=== PATIENT | female | born 1985 | race Two or more races ===

== ENCOUNTER 2022-10-04 11:15 | Day surgery (SDC) | payer OTHER | END 2022-10-04 20:30 | disposition home or self-care (01) | LOC: CIR.AMB 11:15 | PROVIDERS: ATTEND Obstetrics & Gynecology Maternal & Fetal Medicine | DX: O02.1 Missed abortion (principal); O72.2 Delayed and secondary postpartum hemorrhage; Z20.822 Contact with and (suspected) exposure to COVID-19 ==

== ENCOUNTER 2023-10-16 17:24 | Outpatient (CLI) | payer OTHER | END 2023-10-16 18:15 | disposition home or self-care (01) | LOC: NST 17:24 | PROVIDERS: ATTEND Obstetrics & Gynecology Gynecology | DX: Z34.83 Encounter for supervision of other normal pregnancy, third trimester (principal) ==

== ENCOUNTER 2023-11-14 09:16 | Inpatient (IN) | payer OTHER ==
[~2023-11-14] VITALS: Ht 162.6 cm; Wt 2.7 kg
[2023-11-14] MEDS ORDERED: MORPHINE SULFATE 4 MG/ML CARTRIDGE IV STA ×2 (09:19→16:14)
[2023-11-14] MEDS ORDERED: PRENATAL TABLE1 EAC1 PO (09:20)
[2023-11-14] MEDS ORDERED: FERROCITE PLUS1 EACH PO (09:21)
[2023-11-14] MEDS ORDERED: AMPICILLIN SODIUM 1,000 MG VIAL IV SCH (09:41)
[2023-11-14] MEDS ORDERED: RINGERS SOLUTION,LACTATED 1,000 ML IV SCH (09:45)
[2023-11-14] MEDS ORDERED: AMPICILLIN SODIUM 2,000 MG VIAL IV ONE (09:45)
[2023-11-14 10:03] LABS: URINE APPEARANCE Clear; URINE BILIRRUBIN Negative (NEGATIVE); URINE BLOOD Negative; URINE COLOR Dark Yellow; URINE GLUCOSE Negative (NEGATIVE); URINE LEUKOCYTE Negative; URINE NITRATE Negative; URINE PROTEIN 30 (NEGATIVE)
[2023-11-14 10:04] LABS: URINE BACTERIA 876.8 uL (0.0-1933); URINE EPITHELIAL CELLS 29.2 uL (0.0-38.8); URINE RBC 18.6 uL (0.0-20.8)
[2023-11-14 10:09] LABS: HEMATOCRIT 36.7 % (36.0-45.00); HEMOGLOBIN 12.7 g/dL (12.0-15.00); MEAN CELL VOLUME 92.2 fL (80.00-100.00); MEAN CORPUSCULAR HEMOGLOBIN 31.9 pg (27.00-32.0); MEAN CORPUSCULAR HGB CONC 34.6 g/dl (32.0-36.0); PLATELET COUNT 186 K/uL (150-450); RED BLOOD COUNT 3.98 M/uL (4.00-6.00)
[2023-11-14 10:24] LABS: URINE MUCUS HEAVY
[2023-11-14 10:29] LABS: INR < 0.93; PARTIAL THROMBOPLASTIN TIME 26.8 SECONDS (22.0-34.0)
[2023-11-14 10:30] LABS: PROTHROMBIN TIME 9.2 SECONDS (9.0-11.5)
[2023-11-14 10:43] LABS: ALBUMIN 3.2 gm/dL (3.4-5.0); BILIRUBIN TOTAL 0.49 mg/dL (0.3-1.2); CREATININE SERUM 0.48 mg/dL (0.55-1.02); GFR 146.34; GLOBULINA 3.4 G/DL (2.4-3.5); POTASSIUM 3.73 mEq/L (3.5-5.1); TOTAL PROTEIN 6.6 gm/dL (6.4-8.2)
[2023-11-14] MEDS ORDERED: OXYTOCIN 10 UNITS/ML VIAL ONE ×4 (12:01→22:05)
[2023-11-14] MEDS ORDERED: LIDOCAINE HCL 100 MG/10ML VIAL ONE (12:02)
[2023-11-14] MEDS ORDERED: CHLORHEXIDINE GLUCONATE 120 ML BOTTLE TOP ONE (12:02)
[2023-11-14] MEDS ORDERED: ERYTHROMYCIN BASE 1 GM TUBE OP ONE (12:02)
[2023-11-14] MEDS ORDERED: CEFOXITIN SODIUM 2,000 MG VIAL IV STA (19:21)
[2023-11-14] MEDS ORDERED: CITRIC ACID/SODIUM CITRATE 30 ML BLIST.PACK PO STA (19:21)
[2023-11-14] MEDS ORDERED: ERYTHROMYCIN BASE 3.5 GM OINT...G. OP ONE (19:25)
[2023-11-14] MEDS ORDERED: CEFOXITIN SODIUM 2,000 MG VIAL IV ONE (19:31)
[2023-11-14] MEDS ORDERED: CITRIC ACID/SODIUM CITRATE 30 ML BLIST.PACK PO ONE (19:31)
[2023-11-14] MEDS ORDERED: OXYTOCIN 500 ML IV SCH (20:15)
[2023-11-14] MEDS ORDERED: KETOROLAC TROMETHAMINE 30 MG VIAL ONE (22:10)
[2023-11-14 22:35] LABS: ABG PO2 18.5 mmHg (80-100); ABG pCO2 52.5 mmHg (35-45); BASE EXCESS -5.3 mmol/l; BICARBONATE 22.5 mmol/l (23-25); SaO2 19.9 %; Tco2 24.1 mmol/l; o2 21 %
[2023-11-14] MEDS ORDERED: SIMETHICONE 125 MG CAPSULE PO SCH (22:48)
[2023-11-14] MEDS ORDERED: CEFOXITIN SODIUM 2,000 MG VIAL IV SCH (22:48)
[2023-11-14] MEDS ORDERED: PROMETHAZINE HCL 25 MG/ML AMPUL IM PRN (23:00)
[2023-11-14] MEDS ORDERED: MEPERIDINE HCL/PF 50 MG/ML VIAL IM PRN (23:00)
[2023-11-15] MEDS ORDERED: KETOROLAC TROMETHAMINE 10 MG TABLET PO SCH
[2023-11-15 02:35] LABS: HEMATOCRIT 36.4 % (36.0-45.00); HEMOGLOBIN 12.5 g/dL (12.0-15.00); MEAN CELL VOLUME 91.2 fL (80.00-100.00); MEAN CORPUSCULAR HEMOGLOBIN 31.4 pg (27.00-32.0); MEAN CORPUSCULAR HGB CONC 34.4 g/dl (32.0-36.0); PLATELET COUNT 194 K/uL (150-450); RED BLOOD COUNT 3.99 M/uL (4.00-6.00); RED CELL DISTRIBUTION WIDTH 13.1 % (11.5-14.5)
[2023-11-15] MEDS ORDERED: OXYTOCIN 10 UNITS/ML VIAL ONE (06:39)
[2023-11-15 07:21] LABS: HEMATOCRIT 33.1 % (36.0-45.00); HEMOGLOBIN 11.7 g/dL (12.0-15.00); MEAN CORPUSCULAR HEMOGLOBIN 32.5 pg (27.00-32.0); MEAN CORPUSCULAR HGB CONC 35.3 g/dl (32.0-36.0); PLATELET COUNT 167 K/uL (150-450); RED CELL DISTRIBUTION WIDTH 12.8 % (11.5-14.5)
[2023-11-15] MEDS ORDERED: OxyCODONE HCL/APAP UD (PERCOCET) PO SCH (13:00)
[2023-11-16] MEDS ORDERED: BISACODYL 10 MG/SUPP.RECT SUPP.RECT RECTAL ONE (18:30)
[2023-11-17] MEDS ORDERED: OXYC1TAB9 PO (07:39)
[2023-11-17] MEDS ORDERED: KETO10TA2 PO (07:39)
== END 2023-11-17 12:41 | disposition home or self-care (01) | DRG 788 ==
LOC: LDR 09:16 → OB/GYN 09:16 → SURG 11-17 15:40
PROVIDERS: Obstetrics & Gynecology Maternal & Fetal Medicine; ADMIT Obstetrics & Gynecology Gynecology; ATTEND Obstetrics & Gynecology Gynecology
PROC: 4A1HXCZ Monitoring of Products of Conception, Cardiac Rate, External Approach (ICD-10-PCS; 2023-11-14)
PROC: 10D00Z1 Extraction of Products of Conception, Low, Open Approach (ICD-10-PCS; principal; 2023-11-14 19:15)
DX: O82 Encounter for cesarean delivery without indication (principal); O62.1 Secondary uterine inertia; Z3A.39 39 weeks gestation of pregnancy; Z37.0 Single live birth; Z20.822 Contact with and (suspected) exposure to COVID-19

== ENCOUNTER 2025-07-13 10:00 | Inpatient (IN) | payer OTHER ==
[~2025-07-13] VITALS: Ht 162.6 cm; Wt 3.6 kg
[~2025-07-13 10:00] MED LIST: FERROCITE PLUS1 EACH PO; KETO10TA2 PO; OXYC1TAB9 PO; PRENATAL TABLE1 EAC1 PO
[2025-07-13 12:32] LABS: BASO % 0.3 % (0.1-1.2); EOS # 0.13 (0.04-0.54); EOS % 1.3 % (0.7-7.0); LYMPH # 1.64 (1.18-3.74); LYMPH % 16.2 % (19.3-53.1); MEAN PLATELET VOLUME 10.20 fl (9.4-12.4); MONO # 0.64 (0.24-0.82); MONO % 6.3 % (4.7-12.5); NEUT # 7.66 (1.56-6.13); NEUT % 75.4 % (34.0-71.1); RED CELL DISTRIBUTION WIDTH 12.3 % (11.6-14.4)
[2025-07-13 12:49] LABS: INR < 0.93
[2025-07-13 13:09] LABS: ALT/SGPT 21.0 U/L (12-78); AST/SGOT 14.0 U/L (15-37); BILIRUBIN TOTAL 0.56 mg/dL (0.3-1.2); BUN CREA RATIO 20.0 (7.0-25.0); CREATININE SERUM 0.44 mg/dL (0.55-1.02); GFR 160.9; GLOBULINA 3.1 G/DL (2.4-3.5); GLUCOSE FASTING 107.0 mg/dL (65-100); OSMOLALITY SERUM 279.0 MOSM/KG (275-295)
[2025-07-20 07:21] VITALS: BP 112/71
[2025-07-20] MEDS ORDERED: CITRIC ACID/SODIUM CITRATE 30 ML BLIST.PACK PO ONE (08:39)
[2025-07-20] MEDS ORDERED: CEFAZOLIN SODIUM 1,000 MG VIAL ONE (08:40)
[2025-07-20] MEDS ORDERED: OXYTOCIN 10 UNITS/ML VIAL ONE (08:55)
[2025-07-20] MEDS ORDERED: ERYTHROMYCIN BASE OPHT 1GM EACH TUBE OP ONE (08:56)
[2025-07-20] MEDS ORDERED: METHYLERGONOVINE MALEATE 0.2 MG/ML AMPUL ONE (12:40)
[2025-07-20] MEDS ORDERED: MORPHINE SULFATE 4 MG/ML CARTRIDGE IV PRN (13:30)
[2025-07-20] MEDS ORDERED: OXYTOCIN 1,000 ML IV SCH (13:30)
[2025-07-20 18:59] VITALS: BP 100/67
[2025-07-21 03:22] VITALS: BP 100/62
[2025-07-21 08:00] VITALS: BP 100/62
[2025-07-21] MEDS ORDERED: OxyCODONE HCL 5 MG TABLET (ROXICODONE) PO PRN (11:00)
[2025-07-21 11:20] LABS: BASO % 0.2 % (0.1-1.2); EOS # 0.04 (0.04-0.54); EOS % 0.4 % (0.7-7.0); LYMPH # 1.07 (1.18-3.74); LYMPH % 9.4 % (19.3-53.1); MEAN PLATELET VOLUME 10.20 fl (9.4-12.4); MONO # 0.56 (0.24-0.82); MONO % 4.9 % (4.7-12.5); NEUT # 9.65 (1.56-6.13); NEUT % 84.6 % (34.0-71.1); RED CELL DISTRIBUTION WIDTH 12.5 % (11.6-14.4)
[2025-07-21 16:51] VITALS: BP 100/65
[2025-07-22 03:01] VITALS: BP 108/73
[2025-07-22] MEDS ORDERED: OxyCODONE HCL 5 MG TABLET (ROXICODONE) PO PRN (06:00)
[2025-07-22 08:00] VITALS: BP 92/58
[2025-07-22 15:56] VITALS: BP 106/72
[2025-07-23 00:15] VITALS: BP 101/60
[2025-07-23 10:35] VITALS: BP 109/70
== END 2025-07-23 15:56 | disposition home or self-care (01) | DRG 788 ==
LOC: O/R 07-20 08:00 → OB/GYN 07-20 09:15 → O/R 07-20 09:49 → OB/GYN 07-20 10:00
PROVIDERS: Obstetrics & Gynecology; ADMIT Obstetrics & Gynecology Maternal & Fetal Medicine; ATTEND Obstetrics & Gynecology Maternal & Fetal Medicine
PROC: 4A1HXCZ Monitoring of Products of Conception, Cardiac Rate, External Approach (ICD-10-PCS; 2025-07-20)
PROC: 10D00Z1 Extraction of Products of Conception, Low, Open Approach (ICD-10-PCS; principal; 2025-07-20 09:15)
DX: O34.211 Maternal care for low transverse scar from previous cesarean delivery (principal); Z3A.39 39 weeks gestation of pregnancy; Z37.0 Single live birth